=== PATIENT | female | born 1985 | race Caucasian/White ===

== ENCOUNTER 2022-05-23 01:45 | Emergency (ER) | payer OTHER ==
[~2022-05-23] VITALS: Ht 177.8 cm; Wt 85.7 kg
[~2022-05-23 01:45] MED LIST: ALBU0.0939 IH; FLUT1DSK2 IH
[2022-05-23 02:22] VITALS: BP 158/97
[2022-05-23] MEDS ORDERED: IBUPROFEN 800 MG TAB PO ONE (02:30)
--- NOTE | 2022-05-23 02:32 | NUR ---
TO LOBBY FOLLOWING TRIAGE
[2022-05-23] MEDS ORDERED: CYCL-711 PO (02:33)
[2022-05-23] MEDS ORDERED: KETO10TA2 PO (02:33)
[2022-05-23 02:50] VITALS: BP 158/97
--- NOTE | 2022-05-23 02:50 | NUR ---
Patient discharged with v/s stable. Written and verbal after care instructions given and explained. Patient alert, oriented and verbalized understanding of instructions. Ambulatory with steady gait. All questions addressed prior to discharge. ID band removed. Patient advised to follow up with PMD. Rx of FLEXERIL given.
== END 2022-05-23 02:50 | disposition home or self-care (01) ==
LOC: MED 01:45
DX: S13.4XXA Sprain of ligaments of cervical spine, initial encounter (principal); J45.909 Unspecified asthma, uncomplicated; X58.XXXA Exposure to other specified factors, initial encounter; Y93.89 Activity, other specified; Y92.89 Other specified places as the place of occurrence of the external cause; Y99.8 Other external cause status
CPT/HCPCS: 99283